=== PATIENT | female | born 1995 | race Caucasian/White ===

== ENCOUNTER → 2023-11-19 | Outpatient (CLI) | payer MEDICAID, SELFPAY ==
[2023-11-19 15:36] LABS: Erythrocyte Sedimentation Rate 2 mm/hr (0-30)
[2023-11-25 15:08] LABS: ACCA 20 units (0-90); ALCA 61 units (0-60); AMCA 30 units (0-100); Albumin 3.5 g/dL (2.9-4.4); Alpha-1-Globulins 0.3 g/dL (0.0-0.4); Alpha-2-Globulins 0.7 g/dL (0.4-1.0); Cytoplasmic Ab (C-ANCA) <1:20 titer (Neg:<1:20); Endomysial Antibody IgA Negative (Negative); Gamma Globulin 0.7 g/dL (0.4-1.8); Immunoglobulin A 72 mg/dL (87-352); Immunoglobulin E 72 IU/mL (6-495); Immunoglobulin G 589 mg/dL (586-1602); Immunoglobulin M 184 mg/dL (26-217); PROEL- TOTAL PROTEIN 6.1 g/dL (6.0-8.5); Perinuclear Ab (P-ANCA) <1:20 titer (Neg:<1:20); QNTFERON TB Mitogen Value > 10.00 IU/mL (.); QNTFERON TB Nil Value 0.07 IU/mL (.); QNTFERON TB1+ Ag Value 0.04 IU/mL (.); QNTFERON TB2+ Ag Value 0.04 IU/mL (.); QNTIFERON TB Positive Criteria Negative (Negative); gASCA 47 units (0-50); t-Transglutaminase IgA <2 U/mL (0-3)
[2023-11-26 00:07] LABS: Anti-Centromere B Ab <0.2 AI (0.0-0.9); Anti-Chromatin <0.2 AI (0.0-0.9); Anti-Jo <0.2 AI (0.0-0.9); Anti-Scleroderma-70 AB <0.2 AI (0.0-0.9); Anti-dsDNA Ab 1 IU/mL (0-9); Beef <0.10 kU/L (Class 0); Chocolate <0.10 kU/L (Class 0); Codfish <0.10 kU/L (Class 0); Corn 0.95 kU/L (Class II); Egg, Whole <0.10 kU/L (Class 0); Milk (Cow) <0.10 kU/L (Class 0); Mussels 0.29 kU/L (Class 0/I); Peanut 1.29 kU/L (Class II); Pork <0.10 kU/L (Class 0); RNP Ab 0.2 AI (0.0-0.9); SJOGREN'S Anti-SS-A test < 0.2 AI (0.0-0.9); SJOGREN'S Anti-SS-B test < 0.2 AI (0.0-0.9); Salmon <0.10 kU/L (Class 0); Shrimp 0.21 kU/L (Class 0/I); Smith Ab <0.2 AI (0.0-0.9); Soybean 0.72 kU/L (Class II); Tuna <0.10 kU/L (Class 0)
== END | disposition home or self-care (01) ==
LOC: LAB 14:10
PROVIDERS: Referring Provider Student in an Organized Health Care Education/Training Program; Visit Provider Student in an Organized Health Care Education/Training Program
DX: K51.90 Ulcerative colitis, unspecified, without complications (principal)
CPT/HCPCS: 36415; 82784; 82785; 83516; 84165; 85652; 86003; 86005; 86036; 86140; 86225; 86235; 86255; 86256; 86334; 86480; 86671

== ENCOUNTER → 2023-12-01 | Outpatient (CLI) | payer MEDICAID, SELFPAY ==
[2023-12-04 14:10] LABS: Calprotectin, Stool 62 ug/g (0-120)
== END | disposition home or self-care (01) ==
LOC: LABSPEC 11:39
PROVIDERS: Referring Provider Student in an Organized Health Care Education/Training Program; Visit Provider Student in an Organized Health Care Education/Training Program
DX: K51.90 Ulcerative colitis, unspecified, without complications (principal)
CPT/HCPCS: 83630; 83993

== ENCOUNTER → 2024-05-25 | Outpatient (CLI) | payer OTHER, MEDICAID, SELFPAY ==
--- NOTE | 2024-05-25 14:30 | RAD_ITS ---
PROCEDURE: WRIST MIN 3 VIEWS 05/25/2024 REASON FOR EXAM: PAIN IN LEFT WRIST TECHNIQUE: 3 view(s) of the left wrist COMPARISON: None. RAD/Wrist min 3 Views IMPRESSION: A mild degree of negative ulnar variance is seen. Satisfactory carpal alignment is otherwise noted. No significant arthritic process or joint space narrowing is seen. No fracture or dislocation is evident. Reading Location: [id number]
== END | disposition home or self-care (01) ==
PROVIDERS: PCP Family Medicine; Referring Provider Family Medicine; Visit Provider Family Medicine
DX: M25.532 Pain in left wrist (principal)
CPT/HCPCS: 73110

== ENCOUNTER → 2024-07-12 | Outpatient (CLI) | payer OTHER, MEDICAID, SELFPAY ==
[2024-07-12 13:22] LABS: Albumin, Serum 4.4 g/dL (3.5-5.0); Anion Gap 11 (5-15); BUN 14 mg/dL (4-19); BUN/Creat Ratio 13.5 RATIO (10-20); CORTISOL AM 7.63 ug/dL (6.02-18.40); Calcium,Total 9.3 mg/dL (7.6-11.0); Carbon Dioxide 20.1 mmol/L (21.0-32.0); Chloride 108 mmol/L (98-108); Creatinine, Serum 1.06 mg/dL (0.70-1.20); EST Glomerular Filtration Rate 74 (>60); Estradiol 52.4 pg/mL; Follicle Stimulating Hormone 6.4 mIU/mL; Glucose 92 mg/dL (70-99); Luteinizing Hormone 7.9 mIU/mL; Phosphorus 3.5 mg/dL (2.7-4.5); Potassium 4.3 mmol/L (3.3-5.1); Sodium Level 140 mmol/L (133-145); Thyroid Stim Hormone (TSH) 0.357 uIU/mL (0.300-4.200)
[2024-07-12 13:32] LABS: Hemoglobin A1c 5.2 % (<=5.6)
== END | disposition home or self-care (01) ==
LOC: VSLAB 10:22
PROVIDERS: PCP Family Medicine; Visit Provider Family Medicine
DX: R79.89 Other specified abnormal findings of blood chemistry (principal); R63.5 Abnormal weight gain
CPT/HCPCS: 36415; 80069; 82533; 82670; 83001; 83002; 83036; 84402; 84403; 84443

== ENCOUNTER → 2024-08-09 | Outpatient (CLI) | payer OTHER, MEDICAID, SELFPAY ==
[2024-08-09 10:23] LABS: Mucous, Urine 0 SEEN /hpf (<or=2+)
[2024-08-09 14:11] LABS: Color, Urine Yellow (Yellow); Glucose, Dipstick Normal (Normal); Ketone-Dipstick Negative (Negative); Leukocyte Esterase-Dipstick 500 /ul (Negative); Nitrite-Dipstick Negative (Negative); Occult Blood-Urine 10 /ul (Negative); Protein-Dipstick 15 mg/dl (Negative); Specific Gravity, Urine 1.015 (1.002-1.030); Urine Bilirubin Dipstick Negative (Negative); Urine Clarity Sl. Cloudy (Clear); Urine Urobilinogen Normal (Normal)
[2024-08-09 14:28] LABS: White Blood Cells 10-25 SEEN /hpf (0-5)
[2024-08-09 14:29] LABS: Bacteria 2+ /hpf (None Seen); Squamous Epithelial Cells - UA 5-10 SEEN /hpf (5-10)
[2024-08-09 14:30] LABS: Red Blood Cells-Urine 5-10 SEEN /hpf (0-5)
== END | disposition home or self-care (01) ==
LOC: LABSPEC 10:18
PROVIDERS: PCP Family Medicine; Visit Provider Family Medicine
DX: R20.8 Other disturbances of skin sensation (principal); R30.0 Dysuria
CPT/HCPCS: 81001; 87086; 87088

== ENCOUNTER → 2024-10-26 | Outpatient (CLI) | payer OTHER, MEDICAID, SELFPAY ==
[2024-10-26 10:58] LABS: Barbiturate Urine NEGATIVE (< 200 ng/mL); Benzodiazepine Urine NEGATIVE (< 200 ng/mL); PCP Urine NEGATIVE (< 25 ng/mL); THC Urine NEGATIVE (< 50 ng/mL)
[2024-10-26 11:14] LABS: Syphilis Antibodies Nonreactive (Nonreactive)
[2024-10-31 10:08] LABS: QNTFERON TB Mitogen Value > 10.00 IU/mL (.); QNTFERON TB Nil Value 0.09 IU/mL (.); QNTFERON TB1+ Ag Value 0.08 IU/mL (.); QNTFERON TB2+ Ag Value 0.15 IU/mL (.); QNTIFERON TB Positive Criteria Negative (Negative)
== END | disposition home or self-care (01) ==
PROVIDERS: PCP Family Medicine; Referring Provider Family Medicine; Visit Provider Family Medicine
DX: Z72.51 High risk heterosexual behavior (principal)
CPT/HCPCS: 36415; 80307; 86480; 86780; 87491; 87591

== ENCOUNTER → 2025-01-02 | Outpatient (CLI) | payer OTHER, MEDICAID, SELFPAY ==
--- NOTE | 2025-01-02 08:43 | US_ITS ---
PROCEDURE: BREAST LIMITED UNILATERAL 01/02/2025 REASON FOR EXAM: F, Age 29 y/o , MASTODYNIA Left breast pain. COMPARISON: None. TECHNIQUE: Procedure Code: USBRSTLIMIT Modality: US Procedure: BREAST LIMITED UNILATERAL FINDINGS: There is no ultrasound abnormality identified in the left breast to correlate to her breast pain. No suspicious solid or cystic masses are seen. The areas of breast pain appear to represent normal breast tissue. There are some minimally ectatic ducts identified in the retroareolar region of the left breast. There are no obvious filling defects seen in any of the ducts. US/Breast Limited Unilateral IMPRESSION: There is no ultrasound abnormality identified in the left breast to correlate t o her breast pain. No suspicious solid or cystic masses are seen. The areas of breast pain appear to represent normal breast tis lexi. There are some minimally ectatic ducts identified in the retroareolar region of the left breast. There are no obvious filling defects seen in any of the ducts. BI-RADS 1: NEGATIVE RECOMMENDATION: If the patient's symptoms do continue or worsen, follow-up ultr asound may be of value. The patient should return at the age of 42 for routine yearly screening mammography. Reading Location: [id number]
--- NOTE | 2025-01-02 08:43 | US_ITS ---
PROCEDURE: BREAST LIMITED UNILATERAL 01/02/2025 REASON FOR EXAM: F, Age 29 y/o , MASTODYNIA Right breast pain and right axillary pain. COMPARISON: None. TECHNIQUE: Procedure Code: USBRSTLIMIT Modality: US Procedure: BREAST LIMITED UNILATERAL FINDINGS: There is no ultrasound abnormality identified in the right breast to correlate to her breast pain. No suspicious solid or cystic masses are seen. The areas of breast pain appear to represent normal breast tissue. There is a benign-appearing right axillary lymph node seen in the location of her axillary pain. This benign-appearing lymph node has a thin cortex and a fatty hilum. The lymph node measures 2.1 x 1.1 x 0.8 cm. There are no suspicious masses or abnormalities seen in the right breast axillary region. US/Breast Limited Unilateral IMPRESSION: There is no ultrasound abnormality identified in the right breast to correlate to her breast pain. No suspicious solid or cystic masses are seen. The areas of breast pain appear to represent normal breast ti ssue. There is a benign-appearing right axillary lymph node seen in the location of h er axillary pain. This benign-appearing lymph node has a thin cortex and a fatty hilum. The lymph node measures 2.1 x 1.1 x 0.8 cm. There are no suspicious masses or abnormalities seen in the right breast axillary region. If the patient's symptoms continue or worsen, follow-up ultrasound is recommend ed. Otherwise, the patient should return at the age of 42 for routine yearly screening mammography. BI-RADS 2: BENIGN RECOMMENDATION: OTHER Reading Location: [id number]
--- NOTE | 2025-01-02 08:43 | BI_ITS ---
EXAM: DIAG MAMM W/CAD, BILAT N/A CLINICAL HISTORY: F, Age 29 y/o , MASTODYNIA TECHNIQUE: Procedure Code: [id number] Modality: MG Procedure: DIAG MAMM W/CAD, BILAT. COMPARISON: None. This is a baseline study. FINDINGS: TISSUE DENSITY: The breasts are heterogeneously dense, which may obscure small masses. Bilateral Breast Mammographic Findings: There is no mammographic abnormality in either breast to correlate to the breast pain. Further workup with ultrasound will be performed. Benign round microcalcifications are seen in both breasts. No significant masses, calcifications or other abnormalities are identified. BI/DIAG MAMM W/CAD, BILAT IMPRESSION: There is no mammographic abnormality in either breast to correlate to her bilat eral breast pain. Further workup with ultrasound will be performed for further evaluation. OVERALL FINAL ASSESSMENT BI-RADS 0: INCOMPLETE - NEED ADDITIONAL IMAGING EVALUATION. RECOMMENDATION: Ultrasound Recommended Additional Recommendation none A letter with findings and recommendations will be mailed to the patient. Reading Location: [id number]
== END | disposition home or self-care (01) ==
LOC: OPBI 08:42
PROVIDERS: PCP Family Medicine; Referring Provider Family Medicine; Visit Provider Family Medicine
DX: N64.4 Mastodynia (principal)
CPT/HCPCS: 76642; 77062; 77066; G0279

== ENCOUNTER → 2025-01-20 | Outpatient (CLI) | payer MEDICAID, SELFPAY ==
[2025-01-20 10:49] LABS: CRP 44.00 mg/L (0.0-3.0)
[2025-01-20 10:50] LABS: AST(SGOT) 15 U/L (<=31); Alanine Aminotransfer ALT/SGPT < 5 U/L (<=34); Albumin, Serum 4.2 g/dL (3.5-5.0); Alkaline Phosphatase 64 U/L (35-104); Anion Gap 9 (5-15); BUN 13 mg/dL (4-19); BUN/Creat Ratio 12.5 RATIO (10-20); Calcium,Total 9.0 mg/dL (7.6-11.0); Carbon Dioxide 24.9 mmol/L (21.0-32.0); Chloride 105 mmol/L (98-108); Globulin 2.7 g/dL (2.2-4.2); Glucose 99 mg/dL (70-99); Hematocrit 40.3 % (37-47); Hemoglobin 13.6 g/dL (12.0-15.0); Immature Granulocytes Count 0.050 X10^3/uL (0.0-0.0); Mean Corp Hgb Conc 33.7 g/dL (32-36); Mean Corpuscular Volume 87.0 fL (81-99); Mean Platelet Vol. 9.1 fl (6.2-12.0); NRBC Flagged by Analyzer 0 % (0-5); Platelet Count 302 K/mm3 (150-450); Potassium 4.2 mmol/L (3.3-5.1); RBC Distribution Width CV 12.2 % (11.6-14.6); RBC Distribution Width SD 39.3 fl (35.1-43.9); Red Blood Count 4.63 M/mm3 (4.2-5.4); White Blood Count 13.3 K/mm3 (4.4-11.0)
== END | disposition home or self-care (01) ==
PROVIDERS: PCP Family Medicine; Referring Provider Student in an Organized Health Care Education/Training Program; Visit Provider Student in an Organized Health Care Education/Training Program
DX: K51.90 Ulcerative colitis, unspecified, without complications (principal); K81.9 Cholecystitis, unspecified
CPT/HCPCS: 36415; 80053; 85025; 85652; 86140

== ENCOUNTER 2025-02-16 09:22 | Day surgery (SDC) | payer MEDICAID, SELFPAY ==
[2025-02-16] VITALS (9 sets, daily range): BP systolic 92–128; BP diastolic 60–97; PULSE 76–88; RESP 16; TEMP 36.2–36.3; O2SAT 94–100; BMI 27.5
[2025-02-16 09:48] LABS: Internal QC Validated? YES +Cl - CLEAR BKGD; Pregnancy, Urine Negative Negative
[2025-02-16] MEDS: Lactated Ringers 1,000 ML 15 ML IV (09:56)
--- NOTE | 2025-02-16 10:02 | PCM.HP.STD ---
HPI - General General Date of Admission: 02/16/25 Date of Service: 02/16/25 Chief Complaint: Ulcerative colitis HPI Narrative OTF HUERTA, is a 29 F who presents [Chief Complaint: UC [facility] established 05.25.24 for UC. Pt diagnosed years ago in [facility] and has been on Budesonide for many years. Does not feel it helps. Pt is currently and endorses constipation. *Start mesalamine per Dr. Rueda recommendation Biochemical work up; food allergies + shrimp, mussels, corn, wheat, soybean and peanut, CRP 4.10, ESR wnl, calprotectin wnl, ALCA IGG + Last OV 05.25.24 Pt seen in ED at [facility] 05.23.[address] and CT showing cholecystitis. Recommend cholecystectomy but pt was too nervous to proceed. Discharged with antibiotics. She is doing well today with no further episodes of biliary colic. I advised she follow surgical recommendations. Referred to [facility] 05.31.24; Discussed cholecystectomy but pt decided to hold off OV 07.20.24; Pt doing well. She continues with mesalamine daily. She denies abd pain, constipation, diarrhea, blood in her stool, n/v or heartburn. Laboratory findings; not completed Calprotectin: Not completed OV 01/20/2025 -Patient with diarrhea since her last office visit, having 4 loose stools per day with mucus and occasional blood -Associated with abdominal cramping no alleviating or exacerbating factors. -Interested in seeing a dietitian -Continues with mesalamine -Last colonoscopy in 2023 ] [facility] Medical History Migraine-cluster headache syndrome Injury of back History of ulceration Overweight Chronic diarrhea Acute non-recurrent maxillary sinusitis Home Medications ?Medication ?Instructions ?Recorded ?Last Taken ?Type norgestimate 0.18 mg/0.215mg/0.25 1 tab PO QDAY 05/31/24 Unknown History mg-ethinyl estradiol 0.025 mg tablet (Tri-Lo-Veronique) mesalamine 1.2 gram tablet,delayed 2.4 g (2 x 1.2 gram) PO QDAY 8 11/02/24 Unknown Rx release weeks #112 tabs amitriptyline 10 mg tablet 10 mg PO QDAY 01/20/25 Unknown History Allergy/AdvReac Type Severity Reaction Status Date / Time No Known Allergies Allergy Verified 02/16/25 09:44 Family History Uncle Colon cancer Surgical History H/O colonoscopy Hx of appendectomy Social History Smoking Status: Never smoker alcohol intake: never substance use type: does not use ROS Constitutional Constitutional: Denies fatigue, fever(s), poor appetite, weight gain or weight loss Gastrointestinal Gastrointestinal: Denies belching, bloating, change in bowel habits, change in stool character, chewing difficulty, coffee ground emesis, constipation, cramping, diarrhea, dyspepsia, dysphagia, early satiety, excessive flatus, fecal incontinence, heartburn, hematemesis, hematochezia, hemorrhoids, loose stools, melena, nausea, odynophagia, rectal bleeding, tenesmus, vomiting or weight changes Vital Signs Vital Signs Vital Signs: 02/16/25 09:45 02/16/25 09:45 02/16/25 09:45 Temperature 97.2 F L Temperature Source Temporal Pulse Rate 86 Respiratory Rate 16 Respiratory Pattern Normal Blood Pressure 128/97 H Blood Pressure Mean 107 Blood Pressure Source Monitor Blood Pressure Position Sitting Blood Pressure Location Left Arm Baseline BP 128/97 Pulse Ox 100 Oxygen Delivery Method Room Air Weight Weight: 165 lb 5.547 oz Body Mass Index (BMI) 27.5 Physical Exam Const alert, oriented x3, no apparent distress and healthy appearing General Appearance: cooperative GI normal to inspection, nondistended, normoactive bowel sounds, soft to palpation, non-tender and non-distended Percussion: normal to percussion Rectal Exam: deferred Results Lab / Micro Data Labs: Laboratory Results - last 24 hr 02/16/25 09:40: Urine Test Negative Assessment & Plan Assessment/Plan (1) Ulcerative colitis: (2) Chronic diarrhea: PLAN: Assessment and Plan Assessment and Plan (1) Ulcerative colitis: Status: Acute Plan: Otf is a 29-year-old female patient with past medical history of cholecystitis, and ulcerative colitis here today for follow-up. Patient diagnosed with ulcerative colitis in [facility] with last colonoscopy being in 2023. Since then she has been on mesalamine which has controlled her disease for the most part. Symptoms are typically better during . Since her last office visit in July she has had reoccurrence of diarrhea. She is having loose stools 4 times per day with mucus and blood. Recommended colonoscopy at this time however she would prefer to complete stool testing and blood work first. CMP, CBC, and CRP ordered. Calprotectin and infectious stool studies ordered. Pending results will encourage repeat colonoscopy. In the interim, continue mesalamine. - Recommended colonoscopy - Calprotectin and infectious stool studies - CBC, CRP and CMP - Will notify patient of results and recommendations - Follow-up in 3 months Note: Portions of this note may have been selectively carried forward from previous documentation to ensure continuity and accuracy of the clinical record. All imported information has been reviewed and updated as necessary to reflect the current patient status, findings, and clinical decision-making for this encounter. [employer] speech recognition form setter steel forms software was used to create portions of this document. Sound alike and misspelled words, as well as other form setter steel forms errors may be contained in the documentation. (2) Cholecystitis: Status: Acute (3) Chronic diarrhea: Status: Chronic Orders: Orders CBC W/Diff, Automated Today K51.90 - Ulcerative colitis, unspecified, without complications, K81.9 - Cholecystitis, unspecified Comprehensive Metabolic Profil Today K51.90 - Ulcerative colitis, unspecified, without complications, K81.9 - Cholecystitis, unspecified ENTERIC PATHOGEN PANEL STOOL Today K51.90 - Ulcerative colitis, unspecified, without complications, K52.9 - Noninfective gastroenteritis and colitis, unspecified, K58.9 - Irritable bowel syndrome, unspecified CDIFF (PCR) Today K51.90 - Ulcerative colitis, unspecified, without complications, K52.9 - Noninfective gastroenteritis and colitis, unspecified OVA+PARA w/Giardia EIA [id number] Today K51.90 - Ulcerative colitis, unspecified, without complications, K52.9 - Noninfective gastroenteritis and colitis, unspecified Referrals Nutrition Referral K51.90 - Ulcerative colitis, unspecified, without complications, K81.9 - Cholecystitis, unspecified
--- NOTE | 2025-02-16 10:30 | COLBX_PTH ---
PATIENT: DAMIAN HUERTA LOC: EN U#:[id number] AGE/SX: 29/F ROOM: RE02/16/[address]: Dr. Yimi Suh DO : 1995 BED: DIS: 02/16/2025 SPEC #: [id number] RECD: 02/16/25 15:12 STATUS: JCARLOS ADA #: [id number] CYDNEY: 02/16/25 10:[address]: Yimi Suh DEPT: SURGICAL PATHOLOGY RECD BY: Jus Connolly ENTERED: 02/17/25 10:55 SP TYPE: COLON BX OTHR DR: Paulina Herman, [facility], DO Tissues: A - Ileum, NOS B - COLON BIOPSY C - Sigmoid colon biopsy Procedures: Surgery Specimen Level IV HEADER OPERATION: Colonoscopy with biopsy PRE-OP DIAGNOSIS: Ulcerative colitis, chronic diarrhea TISSUE SUBMITTED: A- Terminal ileum biopsy, B- Random colon biopsy, C- Sigmoid and rectum biopsy MICROSCOPIC DIAGNOSIS A. Small intestine, terminal ileum, biopsy: - Small intestinal mucosa with prominent mucosal lymphoid tissue, favor reactive - see note. Note: If clinical suspicion for a lymphoproliferative disorder is high, please contact the Laboratory to request additional evaluation. B. Colon, random, biopsy: - No specific pathologic change. - The histologic features of microscopic colitis are not demonstrated. C. Colon, sigmoid / rectum, biopsy: - No specific pathologic change. MICROSCOPIC DESCRIPTION Slides are reviewed. GROSS DESCRIPTION A. Received in fixative is one container labeled with the patient's name and designated Terminal ileum biopsy. The specimen consists of two irregular fragments of britton tissue that measure 0.4 and 0.5 cm. The specimen is totally submitted in one cassette. B. Received in fixative is one container labeled with the patient's name and designated Random colon biopsy. The specimen consists of multiple irregular fragments of britton tissue that in aggregate measure 1.3 x 1 x 0.1 cm. The specimen is totally submitted in one cassette. C. Received in fixative is one container labeled with the patient's name and designated Sigmoid and rectum biopsy. The specimen consists of multiple irregular fragments of britton tissue that in aggregate measure 0.9 x 0.6 x 0.1 cm. The specimen is totally submitted in one cassette. VT 02/17/2025 CPT:91458l9
--- NOTE | 2025-02-16 10:42 | PCM.PRE.AN2 ---
ASA Classification* ASA Classification ASA Classification: 2 Assessment & Plan Anesthesia* Anesthesia Assessment Anesthesia Assessment: Discussed sedation and/or anesthesia options, risks, benefits, and alternatives with patient/parents/legal guardian/POA. Questions invited. The patient/parents/legal guardian/POA seems to understand and agrees to proceed with anesthesia plan. Reviewed the physical assessment, medical history, allergy history and patient home medications list prior to surgery/procedure/anesthetic and documented any changes. Performed airway and anesthesia risk assessments. Anesthesia Type Anesthesia Type: MAC History Source History Obtained from:: Patient and Chart Anesthesia Focused Assessment* Temperature: 97.2 F Pulse Rate: 86 Blood Pressure: 128/97 Respiratory Rate: 16 Pulse Ox: 100 Oxygen Delivery Method: Room Air Airway Assessment Mouth opens: >3 cm Mallampati Score: I Teeth Condition: Intact Neck Range of motion (ROM): Full ROM Labs Anesthesia Preop lab: CBC WBC, (4.4-11.0) 13.3 K/mm3 H 01/20/25, 09:20 RBC, (4.2-5.4) 4.63 M/mm3 01/20/25, 09:20 Hgb, (12.0-15.0) 13.6 g/dL 01/20/25, 09:20 Hct, (37-47) 40.3 % 01/20/25, 09:20 Plt Count, (150-450) 302 K/mm3 01/20/25, 09:20 CHEMISTRY Potassium, (3.3-5.1) 4.2 mmol/L 01/20/25, 09:20 Sodium, (133-145) 139 mmol/L 01/20/25, 09:20 Phosphorus, (2.7-4.5) 3.5 mg/dL 07/12/24, 10:23 BUN, (4-19) 13 mg/dL 01/20/25, 09:20 Creatinine, (0.70-1.20) 1.01 mg/dL 01/20/25, 09:20 Glucose, (70-99) 99 mg/dL 01/20/25, 09:20 TSH, (0.300-4.200) 0.357 uIU/mL 07/12/24, 10:23 COAG Urine Test Negative Negative Today, 09:40 Pre-Assessment Diagnosis/Proposed Procedure Planned Operative Procedure(s): COLONOSCOPY Anesthesia History Anesthesia History - administrative services manager: Anesthesia History - administrative services manager Hx Hospitalization Yes: 04/2024 - [facility] 02/13/25 13:44 PROBLEMS Any Problems With Anesthesia No 02/13/25 13:44 Cholinesterase deficiency No 02/13/25 13:44 You/Your Family Experience No 02/13/25 13:44 fever (hyperthermia) with Relationship Recent Exposure to Contagious No 02/16/25 09:45 Disease Does patient have nerve No 02/13/25 13:44 stimulator Patient instructed to have device shut off --Does patient have Pacemaker No 02/16/25 09:45 or ICD? When Was Last Pacemaker Check QUESTION #4 FULL TEXT: You/Your Family Experience fever (hyperthermia) with Anesthesia Last Oral Intake Last Oral intake: Last Oral Intake NPO since 04:00 02/16/25 09:45 Meds taken in AM with sips of No 02/16/25 09:45 water? Meds patient instructed to take am of surgery Any additional information?: Yes NPO since: 04:00 (Patient finished her preop prep at 4 AM.) Meds taken in AM with sips of water?: No PONV PONV - administrative services manager: PONV - administrative services manager Female Yes 02/13/25 13:44 HX of Motion Sickness Yes 02/13/25 13:44 HX of N/V After Surgery No 02/13/25 13:44 Non-Smoker Yes 02/13/25 13:44 Duration of Surgery greater No 02/13/25 13:44 than 60 minutes Number of Risk Factors 3 02/13/25 13:44 PONV Score Moderate Risk 02/13/25 13:44 Height & Weight Height & Weight: Anesthesia: Height & Weight Height 5 ft 5 in 02/16/25 09:45 Weight: 75 kg 02/16/25 09:45 Body Mass Index (BMI) 27.5 02/16/25 09:45 Respiratory Assessment Respiratory Assessment - administrative services manager: Respiratory Tract Infection Hx - administrative services manager Hx Respiratory Tract Infection No 02/13/25 13:44 STOP Sleep Apnea STOP Sleep Apnea - administrative services manager: STOP Sleep Apnea - administrative services manager Hx Hypertension No 02/13/25 13:44 Hx Sleep Apnea No 02/13/25 13:44 CPAP BIPAP Do you snore loudly (louder No 02/13/25 13:44 than talking or can be heard Do you often feel tired/ No 02/13/25 13:44 fatigued/ sleepy during daytime? Has anyone observed you stop No 02/13/25 13:44 breathing during sleep? STOP Results Negative 02/13/25 13:44 QUESTION #5 FULL TEXT : Do you snore loudly (louder than talking or can be heard through closed doors)? 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 Specify any problems Hx of Preganancy in last 3 No 02/13/25 13:44 Months Nurse Filling Out Transfusion [email or web address] 02/13/25 13:44 & Questions: Date: 02/13/25 02/13/25 13:44 Time: 13:48 02/13/25 13:44 Patient unable to answer at this time (ie. confused, unrespo /Reproduction History /Reproductive History - administrative services manager: /Reproductive Hx- administrative services manager Hx Now No 02/13/25 13:44 Gestational Age (in weeks): EDC: Hx Hx Para Hx Section SAB No 02/13/25 13:44 Does the father of the baby or his family experience fever w Father of the baby Malignant Hypertension history comment Active Medications Active Medications: Current Medications Generic Name Dose Route Start Last Admin Trade Name Freq PRN Reason Stop Dose Admin Lactated Ringer's 1,000 mls @ 15 mls/hr 02/16/25 09:45 02/16/25 09:56 IV 15 mls/hr .Q48H NIXON Administration PFSH Medical History Migraine-cluster headache syndrome Injury of back History of ulceration Overweight Chronic diarrhea Acute non-recurrent maxillary sinusitis Home Medications ?Medication ?Instructions ?Recorded ?Last Taken ?Type norgestimate 0.18 mg/0.215mg/0.25 1 tab PO QDAY 05/31/24 Unknown History mg-ethinyl estradiol 0.025 mg tablet (Tri-Lo-Veronique) mesalamine 1.2 gram tablet,delayed 2.4 g (2 x 1.2 gram) PO QDAY 8 11/02/24 Unknown Rx release weeks #112 tabs amitriptyline 10 mg tablet 10 mg PO QDAY 01/20/25 Unknown History Allergy/AdvReac Type Severity Reaction Status Date / Time No Known Allergies Allergy Verified 02/16/25 09:44 Family History Uncle Colon cancer Surgical History H/O colonoscopy Hx of appendectomy Social History Smoking Status: Never smoker alcohol intake: never substance use type: does not use Review of Systems (Anesthesia) ROS Narrative System reviewed and no additional complaints, except as documented.
--- NOTE | 2025-02-16 10:47 | PRE.ANES_ITS ---
Assessment & Plan Anesthesia* Anesthesia Assessment Anesthesia Assessment: Discussed sedation and/or anesthesia options, risks, benefits, and alternatives with patient/parents/legal guardian/POA. Questions invited. The patient/parents/legal guardian/POA seems to understand and agrees to proceed with anesthesia plan. Reviewed the physical assessment, medical history, allergy history and patient home medications list prior to surgery/procedure/anesthetic and documented any changes. Performed airway and anesthesia risk assessments. Anesthesia Focused Assessment* Temperature: 97.2 F Pulse Rate: 86 Blood Pressure: 128/97 Respiratory Rate: 16 Pulse Ox: 100 Labs Anesthesia Preop lab: CBC WBC, (4.4-11.0) 13.3 K/mm3 H 01/20/25, 09:20 RBC, (4.2-5.4) 4.63 M/mm3 01/20/25, 09:20 Hgb, (12.0-15.0) 13.6 g/dL 01/20/25, 09:20 Hct, (37-47) 40.3 % 01/20/25, 09:20 Plt Count, (150-450) 302 K/mm3 01/20/25, 09:20 CHEMISTRY Potassium, (3.3-5.1) 4.2 mmol/L 01/20/25, 09:20 Sodium, (133-145) 139 mmol/L 01/20/25, 09:20 Phosphorus, (2.7-4.5) 3.5 mg/dL 07/12/24, 10:23 BUN, (4-19) 13 mg/dL 01/20/25, 09:20 Creatinine, (0.70-1.20) 1.01 mg/dL 01/20/25, 09:20 Glucose, (70-99) 99 mg/dL 01/20/25, 09:20 TSH, (0.300-4.200) 0.357 uIU/mL 07/12/24, 10:23 COAG Urine Test Negative Negative Today, 09:40 Pre-Assessment Diagnosis/Proposed Procedure Planned Operative Procedure(s): COLONOSCOPY Anesthesia History Anesthesia History - personalization specialist: Anesthesia History - personalization specialist Hx Hospitalization Yes: 04/2024 - [facility] 02/13/25 13:44 PROBLEMS Any Problems With Anesthesia No 02/13/25 13:44 Cholinesterase deficiency No 02/13/25 13:44 You/Your Family Experience No 02/13/25 13:44 fever (hyperthermia) with Relationship Recent Exposure to Contagious No 02/16/25 09:45 Disease Does patient have nerve No 02/13/25 13:44 stimulator Patient instructed to have device shut off --Does patient have Pacemaker No 02/16/25 09:45 or ICD? When Was Last Pacemaker Check QUESTION #4 FULL TEXT: You/Your Family Experience fever (hyperthermia) with Anesthesia Last Oral Intake Last Oral intake: Last Oral Intake NPO since 04:00 02/16/25 09:45 Meds taken in AM with sips of No 02/16/25 09:45 water? Meds patient instructed to take am of surgery PONV PONV - personalization specialist: PONV - personalization specialist Female Yes 02/13/25 13:44 HX of Motion Sickness Yes 02/13/25 13:44 HX of N/V After Surgery No 02/13/25 13:44 Non-Smoker Yes 02/13/25 13:44 Duration of Surgery greater No 02/13/25 13:44 than 60 minutes Number of Risk Factors 3 02/13/25 13:44 PONV Score Moderate Risk 02/13/25 13:44 Height & Weight Height & Weight: Anesthesia: Height & Weight Height 5 ft 5 in 02/16/25 09:45 Weight: 75 kg 02/16/25 09:45 Body Mass Index (BMI) 27.5 02/16/25 09:45 Respiratory Assessment Respiratory Assessment - personalization specialist: Respiratory Tract Infection Hx - personalization specialist Hx Respiratory Tract Infection No 02/13/25 13:44 STOP Sleep Apnea STOP Sleep Apnea - personalization specialist: STOP Sleep Apnea - personalization specialist Hx Hypertension No 02/13/25 13:44 Hx Sleep Apnea No 02/13/25 13:44 CPAP BIPAP Do you snore loudly (louder No 02/13/25 13:44 than talking or can be heard Do you often feel tired/ No 02/13/25 13:44 fatigued/ sleepy during daytime? Has anyone observed you stop No 02/13/25 13:44 breathing during sleep? STOP Results Negative 02/13/25 13:44 QUESTION #5 FULL TEXT : Do you snore loudly (louder than talking or can be heard through closed doors)? Tobacco Use History Tobacco Use History - personalization specialist: Tobacco Use History - personalization specialist Tobacco Use Smoking Status Never smoker 02/13/25 13:44 Hx Tobacco Use No 02/13/25 13:44 Years Smoking Packs Smoked per Day Smoking Cessation Date was within the last 15 years Hx Smoking Cessation Date Hx Smoking Cessation Counseling Hematologic Medial History Hematologic Hx - personalization specialist: Hematologic Medical Hx - silk hanger Hx of Blood Transfusion No 02/13/25 13:44 Hx of Transfusion in last 3 No 02/13/25 13:44 Months Date of Last Transfusion (if within last 3 months) Ever experience any problems No 02/13/25 13:44 with transfusion(s)? Specify any problems Hx of Preganancy in last 3 No 02/13/25 13:44 Months Nurse Filling Out Transfusion [email or web address] 02/13/25 13:44 & Questions: Date: 02/13/25 02/13/25 13:44 Time: 13:48 02/13/25 13:44 Patient unable to answer at this time (ie. confused, unrespo /Reproduction History /Reproductive History - personalization specialist: /Reproductive Hx- personalization specialist Hx Now No 02/13/25 13:44 Gestational Age (in weeks): EDC: Hx Hx Para Hx Section SAB No 02/13/25 13:44 Does the father of the baby or his family experience fever w Father of the baby Malignant Hypertension history comment Active Medications Active Medications: Current Medications Generic Name Dose Route Start Last Admin Trade Name Freq PRN Reason Stop Dose Admin Lactated Ringer's 1,000 mls @ 15 mls/hr 02/16/25 09:45 02/16/25 09:56 IV 15 mls/hr .Q48H NIXON Administration PFSH Medical History Migraine-cluster headache syndrome Injury of back History of ulceration Overweight Chronic diarrhea Acute non-recurrent maxillary sinusitis Home Medications ?Medication ?Instructions ?Recorded ?Last Taken ?Type norgestimate 0.18 mg/0.215mg/0.25 1 tab PO QDAY Unknown History mg-ethinyl estradiol 0.025 mg tablet (Tri-Lo-Veronique) mesalamine 1.2 gram tablet,delayed 2.4 g (2 x 1.2 gram ) PO QDAY 8 11/02/24 Unknown Rx release weeks #112 tabs amitriptyline 10 mg tablet 10 mg PO QDAY 01/20/25 Unkn own History Allergy/AdvReac Type Severity Reaction Status Date / Time No Known Allergies Allergy Verified 02/16/25 09:44 Family History Uncle Colon cancer Surgical History H/O colonoscopy Hx of appendectomy Social History Smoking Status: Never smoker alcohol intake: never substance use type: does not use Review of Systems (Anesthesia) ROS Narrative System reviewed and no additional complaints, except as documented.
--- NOTE | 2025-02-16 11:20 | OP.COLON_ITS ---
Patient Name: Otf Shearer Procedure Date: 02/16/2025 10:41 AM Date of : 1995 Age: 29 Procedure: Colonoscopy Indications: Chronic ulcerative proctosigmoiditis Providers: Yimi Suh DO Referring MD: Paulina Herman Do Medicines: Monitored Anesthesia Care Patient Profile: This is a 29 year old female. Refer to note in patient chart for documentation of history and physical. Last Colonoscopy: several years ago. Complications: No immediate complications. Procedure: Pre-Anesthesia Assessment: - Prior to the procedure, a History and Physical was performed, and patient medications and allergies were reviewed. The patient is competent. The risks and benefits of the procedure and the sedation options and risks were discussed with the patient. All questions were answered and informed consent was obtained. Patient identification and proposed procedure were verified by the physician in the pre-procedure area. Mental Status Examination: alert and oriented. Airway Examination: normal oropharyngeal airway and neck mobility. Respiratory Examination: clear to auscultation. CV Examination: normal. Prophylactic Antibiotics: The patient does not require prophylactic antibiotics. Prior Anticoagulants: The patient has taken no anticoagulant or antiplatelet agents except for NSAID medication. ASA Grade Assessment: II - A patient with mild systemic disease. After reviewing the risks and benefits, the patient was deemed in satisfactory condition to undergo the procedure. The anesthesia plan was to use monitored anesthesia care (MAC). Immediately prior to administration of medications, the patient was re-assessed for adequacy to receive sedatives. The heart rate, respiratory rate, oxygen saturations, blood pressure, adequacy of pulmonary ventilation, and response to care were monitored throughout the procedure. The physical status of the patient was re-assessed after the procedure. After I obtained informed consent, the scope was passed under direct vision. Throughout the procedure, the patient's blood pressure, pulse, and oxygen saturations were monitored continuously. The Colonoscope was introduced through the anus and advanced to the terminal ileum. The colonoscopy was performed without difficulty. The patient tolerated the procedure well. The quality of the bowel preparation was adequate. The terminal ileum, ileocecal valve, appendiceal orifice, and rectum were photographed. Scope In: 11:00:52 AM Scope Withdrawal Time 0 hours 8 minutes 53 seconds Scope Out: 11:12:27 AM Total Procedure Duration Time 0 hours 11 minutes 35 seconds Findings: The perianal and digital rectal examinations were normal. The colon (entire examined portion) appeared normal. Biopsies were taken with a cold forceps for histology. Verification of patient identification for the specimen was done. Estimated blood loss was minimal. The terminal ileum appeared normal. Biopsies were taken with a cold forceps for histology. Verification of patient identification for the specimen was done. Estimated blood loss was minimal. Impression: - The entire examined colon is normal. Biopsied. - The examined portion of the ileum was normal. Biopsied. Recommendation: - Discharge patient to home. - Resume previous diet. - Continue present medications. - Await pathology results. - Repeat colonoscopy date to be determined after pending pathology results are reviewed for surveillance. Procedure Code(s): --- Professional --- 66302, Colonoscopy, flexible; with biopsy, single or multiple CPT copyright 2021 [employer]. All rights reserved. The codes documented in this report are preliminary and upon credit specialist review may be revised to meet current compliance requirements. Yimi Suh DO 02/16/2025 11:19:46 AM This report has been signed electronically. Number of Addenda: 0 Note Initiated On: 02/16/2025 10:41 AM
--- NOTE | 2025-02-16 11:20 | OP.PROVAT_ITS ---
02/16/2025 Paulina Herman Do Re : Colonoscopy procedure for Otf Shearer Dear Batsheva This procedure was performed on February. My impressions and recommendations are as follows: Impressions : - The entire examined colon is normal. Biopsied. - The examined portion of the ileum was normal. Biopsied. Recommendations : - Discharge patient to home. - Resume previous diet. - Continue present medications. - Await pathology results. - Repeat colonoscopy date to be determined after pending pathology results are reviewed for surveillance. My findings are described in the full procedure note, which is enclosed. If I can be of further assistance, please feel free to contact me at . Sincerely, Yimi Suh, 02/16/2025 11:19:46 AM This report has been signed electronically.
--- NOTE | 2025-02-16 11:32 | PCM.POST.ANE ---
Anesthesia: Postop Eval I Current Vital Signs Temperature: 97.2 F Pulse Rate: 88 Blood Pressure: 107/63 Respiratory Rate: 16 Pulse Ox: 94 Oxygen Delivery Method: Room Air Assessment Airway patent: Yes Spontaneous unlabored respirations: Yes Mental status: Asleep nausea: No Vomiting: No Anesthesia Complication: No Fluid Hydration Crystalloid volume administer (ml): 500 Total IV fluid infused: 500 Progress Note Anesthesia document: Postop Eval 1 completed: Yes
--- NOTE | 2025-02-16 12:34 | PCM.POSTANE2 ---
Anesthesia Postop Eval I Sum Postop Eval Completion status Anesthesia document: Postop Eval 1 completed: Yes Anesthesia Postop Eval I Summary Anesthesia Postop Eval I Summary: Anesthesia Postop Eval I: Assessment Summary Airway patent Yes 02/16/25 11:32 [email or web address] Spontaneous unlabored Yes 02/16/25 11:32 [email or web address] respirations Mental status Asleep 02/16/25 11:32 [email or web address] nausea No 02/16/25 11:32 [email or web address] Vomiting No 02/16/25 11:32 [email or web address] Anesthesia Postop Eval I: Fluid Summary Crystalloid volume administer 500 02/16/25 11:32 [email or web address] (ml) Colloids volume administered ( ml) Blood Product volume administered (ml) Total IV fluid infused 500 02/16/25 11:32 [email or web address] Anesthesia Postop Eval I: Summary Notes Anesthesia Complication No 02/16/25 11:32 [email or web address] Anesthesia Complication Comment: Post-operative progress note Anesthesia: Postop Eval II Evaluation Mental status: Awake Pain Level: 0 nausea: No Vomiting: No
== END 2025-02-16 12:22 | disposition home or self-care (01) ==
LOC: EN 09:24 → AC 09:26
PROVIDERS: Anesthesiology; PCP Family Medicine; Referring Provider Family Medicine; Visit Provider Internal Medicine Gastroenterology
PROC: 0DJD8ZZ Inspection of Lower Intestinal Tract, Via Natural or Artificial Opening Endoscopic (ICD-10-PCS; CPT 45378; principal; 2025-02-16 10:25)
DX: K51.90 Ulcerative colitis, unspecified, without complications (principal); K81.9 Cholecystitis, unspecified
CPT/HCPCS: 45380; 81025; 88305; J2405

== ENCOUNTER 2025-02-22 09:59 | Outpatient (RCR) | payer MEDICAID, SELFPAY | END 2025-03-08 23:59 | LOC: NS 09:59 | PROVIDERS: PCP Family Medicine; Referring Provider Student in an Organized Health Care Education/Training Program; Visit Provider Student in an Organized Health Care Education/Training Program | DX: Z71.3 Dietary counseling and surveillance (principal); K51.90 Ulcerative colitis, unspecified, without complications; K81.9 Cholecystitis, unspecified | CPT/HCPCS: 97802 ==